=== PATIENT | male | born 1985 | race Caucasian/White ===

== ENCOUNTER 2017-10-26 18:25 | Emergency (ER) | payer OTHER, SELFPAY ==
[2017-10-26 18:27] VITALS: BP 139/99; PULSE 84; RESP 16; TEMP 37.2; O2SAT 98; BMI 21.2
--- NOTE | 2017-10-26 19:00 | ED.VISSUMM ---
- ER Visit Summary Date of Service: 10/26/17 Chief Complaint: Back pain History of Present Illness: The patient is a 32 M with no primary care physician. He reports that he was at work today carrying a couch down steps and slipped and twisted awkwardly. He did not fall. The couch did not fall on him. He has an aching left-sided back pain at 6 out of 10 with walking 3-10 rest. He is not taking anything for this. No relation to his legs. No numbness or weakness in his legs. No problems with his bowels or his bladder. No groin numbness. Physical Examination: Vitals: Stable. Afebrile. General: A&O x 3. NAD. Cardiovascular exam: Regular rate and rhythm, no murmur, rub or gallop. Respiratory exam: Clear to auscultation bilaterally. No wheezes or stridor. Abdominal exam: Soft, nontender, nondistended, normal bowel sounds. No peritoneal signs. Back: Diffuse moderate tenderness to palpation over the lumbar spine and the paraspinous musculature in the lumbar region. No point tenderness. Negative straight leg bilaterally. 5/5 DF, PF, EHL bilaterally. Normal sensation to light touch throughout. Extremity: No clubbing, cyanosis, or edema. Emergency Department Course and Treatment: Patient was treated with naproxen and is resting comfortably Treatment Plan: Patient will be discharged on naproxen. Instructed follow-up corporate care in 1 week for another exam. Be placed on light duty at work. Return to the emergency department for any worsening symptoms. Disposition: To home in improved and stable condition. Impression: 1. Lumbar strain. This note was generated with [employer] dictation software. It may contain incorrect words, spelling, and punctuation that were not noted in review of the chart prior to signing ED Disposition - Plan for ED Patient: Disposition: Home or Assisted Living Chief Complaint: Back Instructions: ED Sprain Strain Lumbar Prescriptions: Naproxen [Naprosyn] 500 mg PO BID PRN #20 tablet Referrals: [facility],Care [GROUP OF PHYSICIANS] - 1 Week
[2017-10-26 19:16] VITALS: PULSE 86; RESP 18; O2SAT 98
[2017-10-26] MEDS: Naproxen 250 MG Tablet 500 MG PO (19:19)
== END 2017-10-26 20:11 | disposition home or self-care (01) ==
LOC: ED 19:00
PROVIDERS: Emergency Provider Emergency Medicine
DX: S39.012A Strain of muscle, fascia and tendon of lower back, initial encounter (principal); X50.1XXA Overexertion from prolonged static or awkward postures, initial encounter; Y93.9 Activity, unspecified; Y92.9 Unspecified place or not applicable; F17.200 Nicotine dependence, unspecified, uncomplicated
CPT/HCPCS: 99282